=== PATIENT | female | born 1945 | race Caucasian/White ===

== ENCOUNTER 2017-05-07 11:14 | Inpatient (IN) | payer OTHER ==
[~2017-05-07] VITALS: Ht 157.5 cm; Wt 140.0 kg
[~2017-05-07 11:14] MED LIST: BACTRIM,SEPT1 TABLET PO; LEVAQUIN500 MG PO; TRAMADOL HCL50 MG PO; TYLENOL REGULA325 MG PO; ULTRAM50 MG PO; VITAMIN C1000 MG PO; VOLTAREN-XR100 MG PO; VOLTAREN75 MG PO; ZESTORETIC 20-1 EAC1 NG; ZESTORETIC 20-1 EAC1 PO; ZINC50 M1 PO
[2017-05-07 14:20] LABS: HEMATOCRIT 37.3 % (36.0-46.0); MCHC 32.7 G/DL (30.0-36.0); MCV 91.9 FL (83-99); MEAN PLAT.VOLUME 9.6 uM^3 (9.5-12.4); PLATELET COUNT 213 K/uL (156-360); RBC DIS.WIDTH-CV 13.1 % (11.8-14.6); RED BLOOD COUNT 4.06 M/uL (3.80-5.20); WHITE BLOOD COUNT 7.2 K/uL (4.1-10.2)
[2017-05-07 14:36] LABS: CHLORIDE 102 mEq/L (99-109); POTASSIUM 4.2 mEq/L (3.7-5.4); SODIUM 138 mEq/L (136-147)
[2017-05-07 14:38] LABS: GLUCOSE 107 mg/dL (70-99)
[2017-05-07 14:39] LABS: ANION GAP 6 MEQ/L (2-14)
[2017-05-07 14:42] LABS: GFR ESTIMATE (CALCULATED) > 59 mL/min/
[2017-05-07 14:43] LABS: UREA NITROGEN (BUN) 23 mg/dL (9-23)
[2017-05-07] MEDS ORDERED: DICLOFENAC SOD100 GM TP (16:30)
[2017-05-07] MEDS ORDERED: OMEPRAZOLE20 MG PO (16:31)
[2017-05-07 17:35] VITALS: BP 137/71
[2017-05-07 19:49] VITALS: BP 122/59
[2017-05-07 22:32] LABS: METH RESISTANT S AUREUS PCR POSITIVE (NEGATIVE)
[2017-05-07 22:38] LABS: PROBE CHECK PASS
[2017-05-07 23:30] VITALS: BP 120/65
[2017-05-08 03:48] VITALS: BP 133/61
[2017-05-08 09:37] VITALS: BP 144/79
[2017-05-08 13:20] VITALS: BP 169/78
[2017-05-08 17:14] VITALS: BP 123/59
[2017-05-08 19:27] VITALS: BP 134/70
[2017-05-08 23:37] VITALS: BP 132/80
[2017-05-09 06:57] LABS: HEMATOCRIT 34.7 % (36.0-46.0); MCV 90.6 FL (83-99); MEAN PLAT.VOLUME 9.1 uM^3 (9.5-12.4); PLATELET COUNT 184 K/uL (156-360); RBC DIS.WIDTH-CV 13.3 % (11.8-14.6); RBC DIS.WIDTH-SD 43.8 % (39-53); RED BLOOD COUNT 3.83 M/uL (3.80-5.20); WHITE BLOOD COUNT 6.7 K/uL (4.1-10.2)
[2017-05-09 07:23] LABS: ANION GAP 6 MEQ/L (2-14); CHLORIDE 103 MEQ/L (99-109); GFR ESTIMATE (CALCULATED) 58 mL/min/; GLUCOSE 90 mg/dL (70-99); POTASSIUM 4.8 MEQ/L (3.7-5.4); SAMPLE HEMOLYSIS CHECK 1; SAMPLE ICTERIC CHECK 0; SAMPLE LIPEMIA CHECK 0; SODIUM 138 MEQ/L (136-147); UREA NITROGEN (BUN) 21 mg/dL (9-23)
[2017-05-09 07:35] VITALS: BP 140/74
[2017-05-09] MEDS ORDERED: BACTRIM,SEPT1 TABLET PO (11:57)
[2017-05-09] MEDS ORDERED: TRAMADOL HCL50 MG PO (11:57)
== END 2017-05-09 13:58 | disposition home or self-care (01) | DRG 603 ==
LOC: EME 11:14 → EDOF 15:37 → ENRESERV 15:51 → 2EAST 17:20
PROVIDERS: Family Medicine; Nurse Practitioner Family
DX: L03.116 Cellulitis of left lower limb (principal); I10 Essential (primary) hypertension; M19.90 Unspecified osteoarthritis, unspecified site; E66.01 Morbid (severe) obesity due to excess calories; Z68.43 Body mass index [BMI] 50.0-59.9, adult
CPT/HCPCS: 80048; 85027; 87040; 87641; 93971; 99281; 99284; J0692; J0696; J1650